=== PATIENT | female | born 1995 | race African-American/Black ===

== ENCOUNTER 2019-07-22 17:22 | Emergency (ER) | payer OTHER ==
--- NOTE | 2019-07-22 17:28 | PDOC ---
Rapid Medical Evaluation Time Seen by Provider: 07/22/19 17:25 Medical Evaluation: 07/22/19 17:25 I have performed a brief in-person evaluation of this patient. The patient presents with a chief complaint of: took "a lot of tylenol yesterday around 8 pm, more than 10 pills) because I was going through something and wanted to just sleep"- endorses suicidal thoughts yesterday when took them but denies any current SI/HI. Now having abdominal pain. 3 episodes of vomiting today. LMP 06/22 Pertinent physical exam findings: epigastric pain I have ordered the following: labs, urine, antidote defer to ED provider The patient will proceed to the ED for further evaluation. Discharge Disposition - Diagnosis Overdose by acetaminophen - Discharge Dispostion Condition at time of disposition: Stable - Referrals - Patient Instructions - Post Discharge Activity
[2019-07-22 17:32] VITALS: BMI 29.0
[2019-07-22 17:53] LABS: BASO % 0.8 % (0-2.0); EOS % 0.6 % (0-4.5); HEMATOCRIT 26.8 % (32.4-45.2); HEMOGLOBIN 7.9 GM/dL (10.7-15.3); LYMPH % 38.6 % (8-40); MCHC 29.5 g/dl (32.0-36.0); MEAN PLT VOLUME 8.9 fl (7.5-11.1); MONO % 11.9 % (3.8-10.2); NEUT % 48.1 % (42.8-82.8); PLATELET COUNT 311 K/MM3 (134-434); RBC 4.71 M/mm3 (3.60-5.2); RDW 20.8 % (11.6-15.6); WHITE BLOOD COUNT 6.9 K/mm3 (4.0-10.0)
[2019-07-22 17:56] LABS: URINE APPEARANCE CLOUDY; URINE BILIRUBIN NEGATIVE (NEGATIVE); URINE COLOR YELLOW; URINE GLUCOSE (UA) NEGATIVE (NEGATIVE); URINE KETONE 2+ (NEGATIVE); URINE LEUK ESTERASE NEGATIVE (NEGATIVE); URINE NITRITE NEGATIVE (NEGATIVE); URINE PROTEIN TRACE (NEGATIVE)
[2019-07-22 17:57] LABS: MCH 16.8 pg (25.7-33.7)
[2019-07-22 18:22] LABS: ALBUMIN 4.1 g/dl (3.4-5.0); BILIRUBIN,TOTAL 0.5 mg/dL (0.2-1); BLOOD UREA NITROGEN 11.7 mg/dL (7-18); CALCIUM 8.7 mg/dL (8.5-10.1); CREATININE 0.9 mg/dL (0.55-1.3); POTASSIUM 3.6 mmol/L (3.5-5.1)
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
[2019-07-22] MEDS ORDERED: ACETYLCYSTEINE 20% 200MG/ML 30ML VIAL *FOR INJECTION USE ONLY IVPB ONE (18:56)
[2019-07-22 19:11] LABS: INR 1.23 (0.83-1.09); PROTHROMBIN TIME (PATIENT) 14.5 SEC (9.7-13.0)
[2019-07-22 19:13] LABS: ACTIVATED PTT 32.1 SECONDS (25.2-36.5)
[2019-07-22] MEDS ORDERED: SODIUM CHLORIDE 0.9% 1000 ML INFUS.BAG IV ONE (20:52)
[2019-07-22] MEDS ORDERED: ONDANSETRON 4 MG/2 ML VIAL IVPUSH ONE (20:52)
[2019-07-22] MEDS ORDERED: FAMOTIDINE 20 MG/50 ML IVPB 20 MG/50 ML MG IVPB ONE ×2 (20:52→21:26)
[2019-07-22 21:00] LABS: ANISOCYTOSIS 1+; MACROCYTOSIS 0; PLATELET ESTIMATE NORMAL; ROULEAU 1+
[2019-07-22] MEDS ORDERED: ONDANSETRON 4 MG/2 ML VIAL ONE (21:26)
[2019-07-22 21:51] VITALS: PULSE 88; TEMP 98.6
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
[2019-07-22] MEDS ORDERED: METOCLOPRAMIDE HCL INJECTION 10 MG/2 ML VIAL IVPUSH ONE (22:53)
[2019-07-22] MEDS ORDERED: METOCLOPRAMIDE HCL INJECTION 10 MG/2 ML VIAL ONE (23:09)
[2019-07-23 00:13] LABS: COCAINE, UR NEGATIVE ng/ml (CUTOFF=300); METHADONE, UR NEGATIVE ng/ml (CUTOFF=300); OPIATES, URI NEGATIVE ng/ml (CUTOFF=300); PHENCYCLIDINE,URINE NEGATIVE ng/ml (CUTOFF=25); URINE AMPHETAMINES NEGATIVE ng/ml (CUTOFF=500); URINE BARBITURATES NEGATIVE ng/ml (CUTOFF=200); URINE BENZODIAZEPINES NEGATIVE ng/ml (CUTOFF=200)
[2019-07-23 04:49] VITALS: BP 135/73
--- NOTE | 2019-07-23 12:49 | EKG ---
Test Reason : Blood Pressure : / mmHG Vent. Rate : 078 BPM Atrial Rate : 078 BPM P-R Int : 152 ms QRS Dur : 092 ms QT Int : 426 ms P-R-T Axes : 031 043 054 degrees QTc Int : 485 ms NORMAL SINUS RHYTHM WITH SINUS ARRHYTHMIA PROLONGED QT ABNORMAL ECG NO PREVIOUS ECGS AVAILABLE Confirmed by HEAVEN TORRES MD ([id number]) on 07/23/2019 12:48:34 PM Referred By: Confirmed By:HEAVEN TORRES MD
== END 2019-07-22 23:46 | disposition home or self-care (01) ==
LOC: JER 17:22
PROC: 3E033GC Introduction of Other Therapeutic Substance into Peripheral Vein, Percutaneous Approach (ICD-10-PCS; principal; 2019-07-22)
PROC: 3E033GC Introduction of Other Therapeutic Substance into Peripheral Vein, Percutaneous Approach (ICD-10-PCS; 2019-07-22)
PROC: 3E033GC Introduction of Other Therapeutic Substance into Peripheral Vein, Percutaneous Approach (ICD-10-PCS; 2019-07-22)
PROC: 3E033GC Introduction of Other Therapeutic Substance into Peripheral Vein, Percutaneous Approach (ICD-10-PCS; 2019-07-22)
DX: F41.9 Anxiety disorder, unspecified (principal); G47.00 Insomnia, unspecified; T39.1X2A Poisoning by 4-Aminophenol derivatives, intentional self-harm, initial encounter; R11.2 Nausea with vomiting, unspecified; R10.84 Generalized abdominal pain; R51 Headache; Y92.038 Other place in apartment as the place of occurrence of the external cause
CPT/HCPCS: 36415; 71045-TC-FY; 80053; 80307; 81003; 84703; 85025; 85610; 85730; 87086; 93005; 93010; 99285-25; J7030

== ENCOUNTER 2023-04-28 14:18 | Emergency (ER) | payer OTHER ==
[2023-04-28 14:48] VITALS: BP 120/68; PULSE 74; RESP 18; TEMP 98.2; BMI 29.7
[2023-04-28] MEDS ORDERED: ACETAMINOPHEN 1000 MG/100 ML BAG IVPB ONE (14:53)
[2023-04-28] MEDS ORDERED: METOCLOPRAMIDE HCL INJECTION 10 MG/2 ML VIAL IVPB ONE (14:53)
[2023-04-28] MEDS ORDERED: ACETAMINOPHEN INJECTION 100 ML IVPB ONE (15:06)
[2023-04-28] MEDS ORDERED: METOCLOPRAMIDE HCL INJECTION 10 MG/2 ML VIAL ONE (15:06)
[2023-04-28 15:54] LABS: ALBUMIN 4.5 g/dl (3.4-5.0); BILIRUBIN,TOTAL 0.5 mg/dl (0.2-1); CALCIUM 9.3 mg/dl (8.5-10.1); CREATININE 0.9 mg/dl (0.6-1.3); POTASSIUM 4.1 mmol/L (3.5-5.1); SGOT/AST 14.1 U/L (15-37); SGPT/ALT 12.9 U/L (7-52); TOT PROT 7.9 g/dl (6.4-8.2)
[2023-04-28 16:09] LABS: HEMATOCRIT 26.5 % (32.4-45.2); HEMOGLOBIN 7.5 G/dL (10.7-15.3); MCHC 28.4 g/dl (32.0-36.0); MEAN PLT VOLUME 9.4 fl (7.5-11.1); PLATELET COUNT 353.3 10^3/uL (134-434); RBC 4.49 10^6/uL (3.60-5.2); RDW 23.7 % (11.6-15.6); WHITE BLOOD COUNT 9.1 10^3/uL (4.0-10.8)
[2023-04-28 16:10] LABS: MCH 16.8 pg (25.7-33.7)
[2023-04-28] MEDS ORDERED: SODIUM CHLORIDE 0.9% 1000 ML INFUS.BAG IV ONE (16:41)
[2023-04-28] MEDS ORDERED: KETOROLAC TROMETHAMINE 15 MG/ML VIAL IVPUSH ONE (16:41)
[2023-04-28] MEDS ORDERED: KETOROLAC TROMETHAMINE 15 MG/ML VIAL ONE (17:03)
[2023-04-28 19:02] LABS: PLATELET ESTIMATE ADEQUATE
== END 2023-04-28 18:54 | disposition home or self-care (01) ==
LOC: FER 14:18
PROC: 3E033NZ Introduction of Analgesics, Hypnotics, Sedatives into Peripheral Vein, Percutaneous Approach (ICD-10-PCS; principal; 2023-04-28)
PROC: 3E0333Z Introduction of Anti-inflammatory into Peripheral Vein, Percutaneous Approach (ICD-10-PCS; 2023-04-28)
PROC: 3E033GC Introduction of Other Therapeutic Substance into Peripheral Vein, Percutaneous Approach (ICD-10-PCS; 2023-04-28)
DX: R51.9 Headache, unspecified (principal); R22.0 Localized swelling, mass and lump, head; H53.8 Other visual disturbances; R50.9 Fever, unspecified; H53.149 Visual discomfort, unspecified; Z20.822 Contact with and (suspected) exposure to COVID-19
CPT/HCPCS: 0241U-QW; 36415; 70450-TC; 70491-TC; 80053; 84703; 85027; 99285-25; Q9967

== ENCOUNTER 2025-01-27 17:03 | Emergency (ER) | payer OTHER ==
[2025-01-27 17:18] VITALS: BP 123/87; PULSE 82; RESP 18; TEMP 98.2; BMI 31.3
[2025-01-27] MEDS ORDERED: DIPHTH,PERTUSS(ACELL),TET 0.5 ML DISP.SYRIN IM ONE (18:28)
[2025-01-27] MEDS: DIPHTH,PERTUSS(ACELL),TET 0.5 ML DISP.SYRIN IM ONE (18:33)
[2025-01-27] MEDS: IBUPROFEN 600 MG TABLET (FP) PO ONE (18:35)
[2025-01-27] MEDS ORDERED: IBUPROFEN 600 MG TABLET (FP) PO ONE (18:35)
== END 2025-01-27 18:38 | disposition home or self-care (01) ==
LOC: FER 17:03
PROC: 3E0234Z Introduction of Serum, Toxoid and Vaccine into Muscle, Percutaneous Approach (ICD-10-PCS; principal; 2025-01-27)
DX: S91.322A Laceration with foreign body, left foot, initial encounter (principal); Z23 Encounter for immunization; W45.8XXA Other foreign body or object entering through skin, initial encounter
CPT/HCPCS: 73630-TC-LT; 90715; 99284-25